=== PATIENT | female | born 1995 | race African-American/Black ===

== ENCOUNTER 2016-07-04 13:16 | Emergency (ER) | payer MEDICAID ==
[~2016-07-04] VITALS: Ht 157.5 cm; Wt 99.8 kg
[2016-07-04 13:30] VITALS: BP 200/134
[2016-07-04] MEDS ORDERED: SODIUM CHLORIDE 0.9% 1,000 ML IVB ONE (17:38)
[2016-07-04 17:45] LABS: Basophils # (auto) 0.1 uL; Basophils % (auto) 0.5 % (0.0-2.0); DEFINITIVE VIEW TRANSMISSION; Eosinophils # (auto) 0 uL; Hematocrit 50.3 % (36.0-46.0); Hemoglobin 16.1 g/dL (12.2-16.2); Mean Corpuscular Hemoglobin 26.4 pg (28.0-32.0); Mean Corpuscular Volume 82.3 fL (80.0-100.0); Mean Platelet Volume 8.6 fL (7.4-10.4); Monocytes # (auto) 0.7 uL; Monocytes % (auto) 5.2 % (0.0-12.0); Neutrophils # (auto) 8.8 uL; Neutrophils % (auto) 70.3 % (37.0-80.0); Platelet Count (auto) 267 10^3/uL (140-450); Red Cell Distribution Width 15.3 % (11.6-16.0); White Blood Cell 12.6 10^3/uL (4.4-10.8)
[2016-07-04] MEDS ORDERED: ONDANSETRON HCL 4 MG/2 ML VIAL IV ONE (17:45)
[2016-07-04] MEDS ORDERED: LIDOCAINE VISCOUS 2% 15ML UD PO ONE (17:45)
[2016-07-04] MEDS ORDERED: DONNATAL 5ml ORAL Elix (BELLADONNA ALK-PHENOBARB) PO ONE (17:45)
[2016-07-04] MEDS ORDERED: ALUM & MAG HYDROX-SIMETH LIQ(MAALOX) 30 ML PO ONE (17:45)
[2016-07-04 18:03] LABS: Albumin 3.9 g/dL (3.4-5.0); BUN/Creatinine Ratio 5.2; Potassium 3.7 mmol/L (3.5-5.1)
[2016-07-04 18:06] LABS: Bilirubin, Total 0.3 mg/dL (0.2-1.0); Total Protein 8.9 g/dL (6.4-8.2)
== END 2016-07-04 19:51 | disposition left against medical advice (07) ==
LOC: EDBD 13:16 → ER 13:26
DX: R10.13 Epigastric pain (principal); R11.2 Nausea with vomiting, unspecified; R19.7 Diarrhea, unspecified; R55 Syncope and collapse; Z88.0 Allergy status to penicillin; Z88.6 Allergy status to analgesic agent
CPT/HCPCS: 36415; 80053; 83690; 84484; 84702; 85025; 85049

== ENCOUNTER 2016-08-12 15:21 | Emergency (ER) | payer MEDICAID ==
[~2016-08-12] VITALS: Ht 175.3 cm; Wt 108.9 kg
[2016-08-12 16:20] LABS: Basophils # (auto) 0 uL; Basophils % (auto) 0.1 % (0.0-2.0); Eosinophils # (auto) 0 uL; Hematocrit 43.6 % (36.0-46.0); Hemoglobin 14.3 g/dL (12.2-16.2); Lymphocytes # (auto) 1.5 uL; Lymphocytes % (auto) 12.6 % (10.0-50.0); Mean Corpuscular Hemoglobin 27.2 pg (28.0-32.0); Mean Corpuscular Hgb Conc. 32.7 g/dL (32.0-36.0); Mean Corpuscular Volume 83.1 fL (80.0-100.0); Mean Platelet Volume 8.8 fL (7.4-10.4); Monocytes # (auto) 0.2 uL; Monocytes % (auto) 1.9 % (0.0-12.0); Neutrophils # (auto) 10.5 uL; Neutrophils % (auto) 85.4 % (37.0-80.0); Platelet Count (auto) 284 10^3/uL (140-450); Red Cell Distribution Width 16.3 % (11.6-16.0); White Blood Cell 12.3 10^3/uL (4.4-10.8)
[2016-08-12 16:40] LABS: Urine Bilirubin Negative (Negative); Urine Blood Negative /uL (Negative); Urine Color Yellow (Yellow); Urine Glucose Normal (Normal); Urine Ketone Negative (Negative); Urine Nitrite Negative (Negative); Urine RBC 1 /hpf (0 - 4); Urine Squamous Epithelial Cell FEW /hpf (<5); Urine Urobilinogen Normal (Negative); Urine pH 8.5 (5.0-8.0)
[2016-08-12 16:55] LABS: Albumin 3.8 g/dL (3.4-5.0); Alkaline Phosphatase 89 U/L (45-117); Anion Gap 9 (5-15); Aspartate Aminotransferase 20 U/L (15-37); BUN/Creatinine Ratio 7.3; Bilirubin, Total 0.2 mg/dL (0.2-1.0); Blood Urea Nitrogen 8 mg/dL (7-18); Calcium 9.1 mg/dL (8.5-10.1); Carbon Dioxide 24 mmol/L (21-32); Chloride 106 mmol/L (98-107); GFR African American 81 mL/min; GFR Non-African American 67 mL/min; Glucose 121 mg/dL (74-106); Potassium 4.2 mmol/L (3.5-5.1); Sodium 139 mmol/L (136-145); Total Protein 8.5 g/dL (6.4-8.2)
[2016-08-12 19:50] VITALS: BP 146/85
[2016-08-12] MEDS ORDERED: PROMETHAZINE HCL 25 MG/ML 1ML IM ONE (20:00)
[2016-08-12] MEDS ORDERED: HYDROcodone-ACET 5/325MG TAB PO ONE (20:00)
== END 2016-08-12 20:59 | disposition home or self-care (01) ==
LOC: EDBD 15:21 → ER 15:29
DX: R55 Syncope and collapse (principal); R42 Dizziness and giddiness; R10.9 Unspecified abdominal pain; R51 Headache; F12.10 Cannabis abuse, uncomplicated; E66.9 Obesity, unspecified; Z68.35 Body mass index [BMI] 35.0-35.9, adult
CPT/HCPCS: 36415; 70450; 71010; 74176; 80053; 81001; 83735; 84484; 85025; 93005; 94761; 96372; 99285; G0434; J2550

== ENCOUNTER 2016-09-15 12:58 | Emergency (ER) | payer MEDICAID ==
[~2016-09-15] VITALS: Ht 157.5 cm; Wt 68.0 kg
[2016-09-15] MEDS: HYDROmorphone HCL 2 MG/ML VL IV ONE (13:42)
[2016-09-15] MEDS: SODIUM CHLORIDE 0.9% 1,000 ML IVB ONE (13:48)
[2016-09-15] MEDS: PANTOPRAZOLE SODIUM 40 MG/10 ML VIAL IV ONE (13:48)
[2016-09-15] MEDS: PROCHLORPERAZINE EDISYLATE 5 MG/ML 2ML VIAL IV ONE (13:48)
[2016-09-15 14:14] LABS: Bilirubin, Total 0.5 mg/dL (0.2-1.0); Calcium 9.7 mg/dL (8.5-10.1); Potassium 3.3 mmol/L (3.5-5.1); Total Protein 8.9 g/dL (6.4-8.2)
[2016-09-15 14:18] LABS: Basophils # (auto) 0 uL; Basophils % (auto) 0.4 % (0.0-2.0); DEFINITIVE VIEW TRANSMISSION; Eosinophils # (auto) 0 uL; Hematocrit 48.8 % (36.0-46.0); Lymphocytes # (auto) 3.3 uL; Mean Corpuscular Hemoglobin 26.6 pg (28.0-32.0); Mean Corpuscular Hgb Conc. 32.7 g/dL (32.0-36.0); Mean Corpuscular Volume 81.4 fL (80.0-100.0); Mean Platelet Volume 9.1 fL (7.4-10.4); Monocytes # (auto) 0.8 uL; Monocytes % (auto) 6.3 % (0.0-12.0); Neutrophils # (auto) 8.1 uL; Neutrophils % (auto) 66.3 % (37.0-80.0); Platelet Count (auto) 286 10^3/uL (140-450); Red Cell Distribution Width 16.6 % (11.6-16.0); White Blood Cell 12.3 10^3/uL (4.4-10.8)
[2016-09-15 15:03] VITALS: BP 110/65
== END 2016-09-15 15:14 | disposition home or self-care (01) ==
LOC: EDBD 12:58 → ER 13:00
DX: K21.9 Gastro-esophageal reflux disease without esophagitis (principal); Z88.0 Allergy status to penicillin; Z88.8 Allergy status to other drugs, medicaments and biological substances
CPT/HCPCS: 36415; 80053; 82150; 83690; 83735; 84702; 85025; 94761; 96361; 96374; 96375; 99285; C9113; J0780; J1170; J7030

== ENCOUNTER 2016-11-30 11:34 | Emergency (ER) | payer MEDICAID ==
[~2016-11-30] VITALS: Ht 157.5 cm; Wt 127.0 kg
[2016-11-30 12:31] LABS: Basophils # (auto) 0 uL; Basophils % (auto) 0.3 % (0.0-2.0); Eosinophils # (auto) 0.1 uL; Eosinophils % (auto) 1.1 % (0.0-7.0); Hematocrit 40.9 % (36.0-46.0); Hemoglobin 13.5 g/dL (12.2-16.2); Lymphocytes # (auto) 2.4 uL; Lymphocytes % (auto) 23.2 % (10.0-50.0); Mean Corpuscular Hgb Conc. 33.1 g/dL (32.0-36.0); Mean Corpuscular Volume 81.6 fL (80.0-100.0); Monocytes # (auto) 0.3 uL; Monocytes % (auto) 2.9 % (0.0-12.0); Neutrophils # (auto) 7.4 uL; Neutrophils % (auto) 72.5 % (37.0-80.0); Platelet Count (auto) 275 10^3/uL (140-450); Red Cell Distribution Width 16.5 % (11.6-16.0); White Blood Cell 10.2 10^3/uL (4.4-10.8)
[2016-11-30 12:49] LABS: Albumin 3.2 g/dL (3.4-5.0); BUN/Creatinine Ratio 6.7; Calcium 8.7 mg/dL (8.5-10.1); Potassium 3.7 mmol/L (3.5-5.1)
[2016-11-30 12:51] LABS: Bilirubin, Total 0.3 mg/dL (0.2-1.0)
[2016-11-30] MEDS ORDERED: SODIUM CHLORIDE 0.9% 1,000 ML IVB ONE (13:59)
[2016-11-30] MEDS ORDERED: PANTOPRAZOLE SODIUM 40 MG/10 ML VIAL IV STA (13:59)
[2016-11-30] MEDS ORDERED: PROCHLORPERAZINE EDISYLATE 5 MG/ML 2ML VIAL IV ONE (14:00)
[2016-11-30] MEDS ORDERED: HYDROmorphone HCL 2 MG/ML VL IV ONE (14:00)
[2016-11-30 15:10] VITALS: BP 154/112
[2016-11-30 16:10] LABS: Urine Bilirubin Negative (Negative); Urine Blood Negative /uL (Negative); Urine Color Yellow (Yellow); Urine Glucose Normal (Normal); Urine Ketone Negative (Negative); Urine Nitrite Negative (Negative); Urine RBC 7 /hpf (0 - 4); Urine Squamous Epithelial Cell FEW /hpf (<5); Urine Urobilinogen Normal (Negative)
== END 2016-11-30 16:49 | disposition home or self-care (01) ==
LOC: EDBD 11:34 → EDUNIT# 11:34 → ER 11:34
DX: K29.70 Gastritis, unspecified, without bleeding (principal); F12.90 Cannabis use, unspecified, uncomplicated; I10 Essential (primary) hypertension; R11.2 Nausea with vomiting, unspecified; Z88.0 Allergy status to penicillin; Z88.6 Allergy status to analgesic agent
CPT/HCPCS: 36415; 80053; 81001; 82150; 83690; 84702; 85025; 94761; 96361; 96374; 96375; 99284; C9113; J0780; J1170; J7030

== ENCOUNTER 2016-12-03 07:26 | Emergency (ER) | payer MEDICAID ==
[~2016-12-03] VITALS: Ht 167.6 cm; Wt 122.5 kg
[2016-12-03 08:47] LABS: Basophils # (auto) 0 uL; Basophils % (auto) 0.4 % (0.0-2.0); DEFINITIVE Y; Eosinophils # (auto) 0 uL; Eosinophils % (auto) 0.1 % (0.0-7.0); Hematocrit 47.8 % (36.0-46.0); Hemoglobin 15.6 g/dL (12.2-16.2); Lymphocytes # (auto) 2.2 uL; Lymphocytes % (auto) 19.1 % (10.0-50.0); Mean Corpuscular Hemoglobin 26.6 pg (28.0-32.0); Mean Corpuscular Hgb Conc. 32.6 g/dL (32.0-36.0); Mean Corpuscular Volume 81.7 fL (80.0-100.0); Mean Platelet Volume 8.8 fL (7.4-10.4); Monocytes % (auto) 8.4 % (0.0-12.0); Neutrophils # (auto) 8.2 uL; Platelet Count (auto) 283 10^3/uL (140-450); Red Cell Distribution Width 16.6 % (11.6-16.0); White Blood Cell 11.4 10^3/uL (4.4-10.8)
[2016-12-03 09:06] LABS: Albumin 3.7 g/dL (3.4-5.0); BUN/Creatinine Ratio 4.9; Bilirubin, Total 0.4 mg/dL (0.2-1.0); Calcium 9.2 mg/dL (8.5-10.1); Potassium 3.3 mmol/L (3.5-5.1); Total Protein 8.2 g/dL (6.4-8.2)
[2016-12-03 10:01] LABS: Amylase 68 U/L (25-115)
[2016-12-03 10:19] LABS: Urine RBC None Seen /hpf (0 - 4)
[2016-12-03] MEDS ORDERED: SODIUM CHLORIDE 0.9% 1,000 ML IVB ONE (10:27)
[2016-12-03] MEDS ORDERED: NALBUPHINE HCL 10 MG/1ml INJECTION IV ONE (10:30)
[2016-12-03] MEDS ORDERED: PROMETHAZINE HCL 25 MG/ML 1ML IV PRN (10:30)
[2016-12-03 10:33] LABS: Urine Bilirubin Negative (Negative); Urine Blood Negative /uL (Negative); Urine Color Yellow (Yellow); Urine Glucose Normal (Normal); Urine Ketone Negative (Negative); Urine Nitrite Negative (Negative); Urine Squamous Epithelial Cell FEW /hpf (<5); Urine Urobilinogen Normal (Negative); Urine pH 7.5 (5.0-8.0)
[2016-12-03 11:59] VITALS: BP 152/88
[2016-12-03] MEDS ORDERED: POTASSIUM CHL 10% (20 MEQ/15ML) ORAL SOLN PO ONE (13:15)
== END 2016-12-03 13:54 | disposition home or self-care (01) ==
LOC: EDBD 07:26 → ER 07:28
DX: R10.9 Unspecified abdominal pain (principal); I10 Essential (primary) hypertension; F12.10 Cannabis abuse, uncomplicated; E87.6 Hypokalemia; E66.01 Morbid (severe) obesity due to excess calories; Z68.41 Body mass index [BMI] 40.0-44.9, adult; Z88.6 Allergy status to analgesic agent; Z88.0 Allergy status to penicillin; Z88.8 Allergy status to other drugs, medicaments and biological substances
CPT/HCPCS: 36415; 74176; 80053; 81001; 81025; 82150; 83690; 83735; 85025; 96361; 96374; 96375; 99285; J2300; J2550; J7030

== ENCOUNTER 2017-04-02 23:58 | Emergency (ER) | payer MEDICAID ==
[2017-04-03] MEDS ORDERED: SODIUM CHLORIDE 0.9% 1,000 ML IVB ONE (06:51)
[2017-04-03] MEDS ORDERED: PANTOPRAZOLE 40 MG/10 ML VIAL IV ONE (07:00)
[2017-04-03] MEDS ORDERED: ONDANSETRON HCL 4 MG/2 ML VIAL IV ONE (07:00)
[2017-04-03 07:07] VITALS: BP 148/106
[2017-04-03] MEDS ORDERED: KETOROLAC TROMETH 30 MG/ML 1ML VIAL IV ONE (07:45)
[2017-04-03] MEDS ORDERED: diphenhdrAMINE HCL 50 MG/1 ML VL IV ONE (07:45)
[2017-04-03 07:46] LABS: Basophils # (auto) 0 uL; Basophils % (auto) 0.3 % (0.0-2.0); Eosinophils # (auto) 0 uL; Hematocrit 44.4 % (36.0-46.0); Hemoglobin 14.8 g/dL (12.2-16.2); Lymphocytes # (auto) 2.1 uL; Lymphocytes % (auto) 16.6 % (10.0-50.0); Mean Corpuscular Hemoglobin 27.3 pg (28.0-32.0); Mean Corpuscular Hgb Conc. 33.2 g/dL (32.0-36.0); Mean Corpuscular Volume 82.3 fL (80.0-100.0); Mean Platelet Volume 8.2 fL (6.9-10.8); Monocytes # (auto) 0.3 uL; Monocytes % (auto) 2.6 % (0.0-12.0); Neutrophils # (auto) 10.3 uL; Neutrophils % (auto) 80.5 % (37.0-80.0); Platelet Count (auto) 239 10^3/uL (140-450); Red Cell Distribution Width 16.3 % (11.8-14.3); White Blood Cell 12.8 10^3/uL (4.4-10.8)
[2017-04-03 08:05] LABS: Albumin 3.9 g/dL (3.4-5.0); BUN/Creatinine Ratio 8.1; Bilirubin, Total 0.5 mg/dL (0.2-1.0); Calcium 9.3 mg/dL (8.5-10.1); Potassium 3.6 mmol/L (3.5-5.1)
== END 2017-04-03 09:02 | disposition home or self-care (01) ==
LOC: EDBD 23:58 → ER 04-03 00:04
DX: K52.9 Noninfective gastroenteritis and colitis, unspecified (principal); Z88.0 Allergy status to penicillin; Z88.6 Allergy status to analgesic agent; I10 Essential (primary) hypertension
CPT/HCPCS: 36415; 74176; 80053; 81002; 82150; 83690; 84702; 85025; 96361; 96374; 96375; 99285; J1200; J1885; J2405; J7030

== ENCOUNTER 2017-05-15 13:57 | Emergency (ER) | payer SELFPAY ==
[~2017-05-15] VITALS: Ht 157.5 cm; Wt 99.8 kg
[2017-05-15 14:06] VITALS: BP 147/97
[2017-05-15 14:51] LABS: Basophils # (auto) 0 uL; Basophils % (auto) 0.4 % (0.0-2.0); Eosinophils # (auto) 0.2 uL; Eosinophils % (auto) 1.7 % (0.0-7.0); Hematocrit 43.5 % (36.0-46.0); Hemoglobin 14.5 g/dL (12.2-16.2); Lymphocytes # (auto) 3.2 uL; Lymphocytes % (auto) 30.5 % (10.0-50.0); Mean Corpuscular Hemoglobin 27.5 pg (28.0-32.0); Mean Corpuscular Hgb Conc. 33.3 g/dL (32.0-36.0); Mean Corpuscular Volume 82.4 fL (80.0-100.0); Mean Platelet Volume 8.6 fL (6.9-10.8); Monocytes # (auto) 0.6 uL; Monocytes % (auto) 5.8 % (0.0-12.0); Neutrophils # (auto) 6.5 uL; Neutrophils % (auto) 61.6 % (37.0-80.0); Nucleated Red Blood Cells % 0.1 %; Platelet Count (auto) 221 10^3/uL (140-450); Red Cell Distribution Width 16.2 % (11.8-14.3); White Blood Cell 10.5 10^3/uL (4.4-10.8)
[2017-05-15 15:06] LABS: Albumin 3.5 g/dL (3.4-5.0); BUN/Creatinine Ratio 8.1; Bilirubin, Total 0.6 mg/dL (0.2-1.0); Potassium 4.9 mmol/L (3.5-5.1); Total Protein 8.3 g/dL (6.4-8.2)
== END 2017-05-15 15:10 | disposition left against medical advice (07) ==
LOC: ER 13:57 → EDBD 13:57 → ER 15:10
DX: R10.9 Unspecified abdominal pain (principal); R11.2 Nausea with vomiting, unspecified; Z53.21 Procedure and treatment not carried out due to patient leaving prior to being seen by health care provider
CPT/HCPCS: 36415; 80053; 85025

== ENCOUNTER 2017-05-17 03:30 | Emergency (ER) | payer SELFPAY ==
[~2017-05-17] VITALS: Ht 157.5 cm; Wt 119.7 kg
[2017-05-17 04:15] LABS: Basophils # (auto) 0 uL; Basophils % (auto) 0.4 % (0.0-2.0); Eosinophils # (auto) 0 uL; Hematocrit 47.4 % (36.0-46.0); Hemoglobin 15.9 g/dL (12.2-16.2); Lymphocytes # (auto) 3.7 uL; Lymphocytes % (auto) 28.4 % (10.0-50.0); Mean Corpuscular Hemoglobin 27.3 pg (28.0-32.0); Mean Corpuscular Hgb Conc. 33.6 g/dL (32.0-36.0); Mean Corpuscular Volume 81.2 fL (80.0-100.0); Mean Platelet Volume 8.4 fL (6.9-10.8); Monocytes # (auto) 0.9 uL; Neutrophils # (auto) 8.3 uL; Neutrophils % (auto) 64.2 % (37.0-80.0); Nucleated Red Blood Cells % 0.1 %; Platelet Count (auto) 248 10^3/uL (140-450); White Blood Cell 12.9 10^3/uL (4.4-10.8)
[2017-05-17 04:31] LABS: Albumin 3.9 g/dL (3.4-5.0); BUN/Creatinine Ratio 4.5; Calcium 9.7 mg/dL (8.5-10.1); Potassium 3.4 mmol/L (3.5-5.1)
[2017-05-17 04:34] LABS: Bilirubin, Total 0.4 mg/dL (0.2-1.0); Total Protein 9.2 g/dL (6.4-8.2)
[2017-05-17 05:01] LABS: Urine Bilirubin Negative (Negative); Urine Blood Negative /uL (Negative); Urine Color Yellow (Yellow); Urine Glucose Normal (Normal); Urine Ketone Negative (Negative); Urine Nitrite Negative (Negative); Urine RBC 1 /hpf (0 - 4); Urine Squamous Epithelial Cell FEW /hpf (<5); Urine Urobilinogen Normal (Negative)
[2017-05-17] MEDS ORDERED: PANTOPRAZOLE 40 MG/10 ML VIAL IV STA (07:45)
[2017-05-17] MEDS ORDERED: HYDROmorphone HCL 2 MG/ML VL IV ONE (07:45)
[2017-05-17] MEDS ORDERED: PROMETHAZINE HCL 25 MG/ML 1ML IV PRN (07:45)
[2017-05-17] MEDS ORDERED: SODIUM CHLORIDE 0.9% 1,000 ML IVB ONE (07:45)
[2017-05-17] MEDS ORDERED: MORPHINE SULF INJ 2 MG/ML SYRINGE 1ML IV ONE (08:00)
[2017-05-17 08:27] LABS: Amylase 113 U/L (25-115)
[2017-05-17 08:45] VITALS: BP 111/59
== END 2017-05-17 09:00 | disposition home or self-care (01) ==
LOC: EDBD 03:30 → ER 03:32
DX: R10.9 Unspecified abdominal pain (principal); F12.10 Cannabis abuse, uncomplicated; I10 Essential (primary) hypertension; N83.209 Unspecified ovarian cyst, unspecified side; Z88.0 Allergy status to penicillin; Z88.8 Allergy status to other drugs, medicaments and biological substances
CPT/HCPCS: 36415; 74176; 80053; 81001; 81025; 82150; 83690; 85025; 94761; 96361; 96374; 96375; 99285; C9113; J2270; J7030

== ENCOUNTER 2017-08-04 16:17 | Emergency (ER) | payer MEDICAID ==
[~2017-08-04] VITALS: Ht 157.5 cm; Wt 112.5 kg
[2017-08-04] MEDS ORDERED: NALOXONE HCL 0.4 MG/ML VIAL IV ONE (16:30)
[2017-08-04] MEDS ORDERED: NALOXONE HCL 0.4 MG/ML VIAL ONE (16:32)
[2017-08-04 16:39] LABS: Basophils # (auto) 0 uL; Basophils % (auto) 0.4 % (0.0-2.0); Eosinophils # (auto) 0 uL; Hematocrit 46.6 % (36.0-46.0); Hemoglobin 15.3 g/dL (12.2-16.2); Lymphocytes # (auto) 1.6 uL; Lymphocytes % (auto) 13.5 % (10.0-50.0); Mean Corpuscular Hemoglobin 27.3 pg (28.0-32.0); Mean Corpuscular Hgb Conc. 32.9 g/dL (32.0-36.0); Monocytes # (auto) 0.3 uL; Monocytes % (auto) 2.7 % (0.0-12.0); Neutrophils % (auto) 83.4 % (37.0-80.0); Nucleated Red Blood Cells % 0.1 %; Platelet Count (auto) 255 10^3/uL (140-450); Red Blood Cells 5.62 10^6/uL (4.0-5.20); Red Cell Distribution Width 16.1 % (11.8-14.3)
[2017-08-04 16:40] VITALS: BP 143/87
[2017-08-04] MEDS ORDERED: SODIUM CHLORIDE 0.9% 1,000 ML IV ONE ×2 (16:45)
[2017-08-04] MEDS ORDERED: PROMETHAZINE HCL 25 MG/ML 1ML ONE (16:52)
[2017-08-04 16:57] LABS: Acetaminophen < 2.0 ug/mL (10-30); Salicylate 2.2 mg/dL (2.8-20.0)
[2017-08-04 16:58] LABS: Albumin 3.7 g/dL (3.4-5.0); BUN/Creatinine Ratio 7.6; Calcium 9.5 mg/dL (8.5-10.1)
[2017-08-04] MEDS ORDERED: PROMETHAZINE HCL 25 MG/ML 1ML IV ONE (17:00)
[2017-08-04 17:01] LABS: Bilirubin, Total 0.4 mg/dL (0.2-1.0); Total Protein 8.8 g/dL (6.4-8.2)
[2017-08-04] MEDS ORDERED: IOHEXOL 300 MG/ML 100ML BOTTLE IJ ONE (17:11)
== END 2017-08-04 18:30 | disposition left against medical advice (07) ==
LOC: ER 16:20
DX: E86.0 Dehydration (principal); E66.01 Morbid (severe) obesity due to excess calories; I10 Essential (primary) hypertension; Z68.42 Body mass index [BMI] 45.0-49.9, adult; Z88.0 Allergy status to penicillin; Z88.6 Allergy status to analgesic agent
CPT/HCPCS: 36415; 71045; 74177; 80053; 80329; 85025; 96361; 96374; 96375; 99285; J2310; J2550; Q9967

== ENCOUNTER 2017-08-06 03:21 | Emergency (ER) | payer MEDICAID ==
[~2017-08-06] VITALS: Ht 157.5 cm; Wt 149.7 kg
[2017-08-06 03:27] VITALS: BP 114/88
[2017-08-06 03:44] LABS: Basophils # (auto) 0 uL; Basophils % (auto) 0.3 % (0.0-2.0); Eosinophils # (auto) 0 uL; Eosinophils % (auto) 0.3 % (0.0-7.0); Lymphocytes # (auto) 3.3 uL; Lymphocytes % (auto) 26.6 % (10.0-50.0); Mean Corpuscular Hemoglobin 27.4 pg (28.0-32.0); Mean Corpuscular Hgb Conc. 34.1 g/dL (32.0-36.0); Mean Corpuscular Volume 80.3 fL (80.0-100.0); Monocytes # (auto) 0.7 uL; Monocytes % (auto) 5.3 % (0.0-12.0); Neutrophils # (auto) 8.4 uL; Neutrophils % (auto) 67.5 % (37.0-80.0); Nucleated Red Blood Cells % 0.1 %; Platelet Count (auto) 267 10^3/uL (140-450); Red Blood Cells 5.48 10^6/uL (4.0-5.20); Red Cell Distribution Width 16.3 % (11.8-14.3); White Blood Cell 12.5 10^3/uL (4.4-10.8)
[2017-08-06 04:29] LABS: Albumin 3.5 g/dL (3.4-5.0); BUN/Creatinine Ratio 5.2; Calcium 9.4 mg/dL (8.5-10.1); Potassium 3.4 mmol/L (3.5-5.1)
[2017-08-06 04:32] LABS: Bilirubin, Total 0.5 mg/dL (0.2-1.0); Total Protein 8.2 g/dL (6.4-8.2)
== END 2017-08-06 06:28 | disposition left against medical advice (07) ==
LOC: EDBD 03:21 → ER 03:23
DX: R10.9 Unspecified abdominal pain (principal); Z53.21 Procedure and treatment not carried out due to patient leaving prior to being seen by health care provider
CPT/HCPCS: 36415; 80053; 82150; 83690; 84702; 85025

== ENCOUNTER 2017-11-13 10:01 | Emergency (ER) | payer MEDICAID ==
[~2017-11-13] VITALS: Ht 157.5 cm; Wt 104.3 kg
[2017-11-13 10:01] VITALS: BP 155/121
[2017-11-13] MEDS ORDERED: SODIUM CHLORIDE 0.9% 1,000 ML IV ONE ×2 (10:20)
[2017-11-13] MEDS ORDERED: KETOROLAC TROMETH 30 MG/ML 1ML VIAL IV ONE (10:30)
[2017-11-13] MEDS ORDERED: ONDANSETRON HCL 4 MG/2 ML VIAL IV ONE (10:30)
[2017-11-13 10:36] LABS: Basophils # (auto) 0.1 uL; Basophils % (auto) 0.5 % (0.0-2.0); Eosinophils # (auto) 0.4 uL; Eosinophils % (auto) 3.7 % (0.0-7.0); Hematocrit 43.4 % (36.0-46.0); Hemoglobin 14.4 g/dL (12.2-16.2); Lymphocytes # (auto) 3.2 uL; Lymphocytes % (auto) 33.1 % (10.0-50.0); Mean Corpuscular Hemoglobin 27.5 pg (28.0-32.0); Mean Corpuscular Hgb Conc. 33.2 g/dL (32.0-36.0); Mean Corpuscular Volume 82.9 fL (80.0-100.0); Monocytes # (auto) 0.6 uL; Monocytes % (auto) 6.5 % (0.0-12.0); Neutrophils # (auto) 5.5 uL; Neutrophils % (auto) 56.2 % (37.0-80.0); Nucleated Red Blood Cells % 0.1 %; Platelet Count (auto) 253 10^3/uL (140-450); Red Blood Cells 5.23 10^6/uL (4.0-5.20); Red Cell Distribution Width 16.1 % (11.8-14.3); White Blood Cell 9.7 10^3/uL (4.4-10.8)
[2017-11-13 10:56] LABS: Urine Bacteria NONE SEEN /hpf (None Seen); Urine Blood Negative /uL (Negative); Urine Mucus FEW (None Seen); Urine Specific Gravity 1.016 (1.001-1.035); Urine WBC 1 /hpf (0 - 5)
[2017-11-13 11:14] LABS: Albumin 3.6 g/dL (3.4-5.0); BUN/Creatinine Ratio 7.6; Bilirubin, Total 0.3 mg/dL (0.2-1.0); Potassium 3.5 mmol/L (3.5-5.1)
[2017-11-13] MEDS ORDERED: PROMETHAZINE HCL 25 MG/ML 1ML IV ONE ×3 (11:15→13:15)
[2017-11-13] MEDS ORDERED: ACETAMINOPHEN 500 MG TAB PO ONE (11:15)
[2017-11-13] MEDS ORDERED: MORPHINE SULFATE 8mg/ml INJ SDV IV ONE (13:15)
== END 2017-11-13 14:28 | disposition home or self-care (01) ==
LOC: ER 10:01 → EDBD 10:01 → ER 14:28
DX: R10.13 Epigastric pain (principal); F12.10 Cannabis abuse, uncomplicated; Z88.0 Allergy status to penicillin; Z88.8 Allergy status to other drugs, medicaments and biological substances
CPT/HCPCS: 36415; 74176; 80053; 81001; 84702; 85025; 96361; 96374; 96375; 96376; 99285; J1885; J2270; J2405; J2550

== ENCOUNTER 2017-11-14 16:44 | Emergency (ER) | payer MEDICAID ==
[~2017-11-14] VITALS: Ht 157.5 cm; Wt 136.1 kg
[2017-11-14 16:45] VITALS: BP 111/60
[2017-11-14] MEDS ORDERED: DONNATAL 5ml ORAL Elix (BELLADONNA ALK-PHENOBARB) PO ONE (17:15)
[2017-11-14] MEDS ORDERED: ALUM & MAG HYDROX-SIMETH LIQ(MAALOX) 30 ML PO ONE (17:15)
[2017-11-14] MEDS ORDERED: LIDOCAINE VISCOUS 2% 15ML UD PO ONE (17:15)
== END 2017-11-14 22:00 | disposition left against medical advice (07) ==
LOC: ER 16:44 → EDBD 16:44 → ER 22:00
DX: R10.13 Epigastric pain (principal); Z53.21 Procedure and treatment not carried out due to patient leaving prior to being seen by health care provider

== ENCOUNTER 2018-03-15 20:22 | Emergency (ER) | payer MEDICAID ==
[~2018-03-15] VITALS: Ht 157.5 cm; Wt 95.3 kg
[2018-03-15] MEDS ORDERED: SODIUM CHLORIDE 0.9% 500 ML IVB ONE (20:57)
[2018-03-15] MEDS ORDERED: PANTOPRAZOLE 40 MG/10 ML VIAL IV STA (20:57)
[2018-03-15] MEDS ORDERED: HYDROmorphone HCL 2 MG/ML VL IV ONE (21:00)
[2018-03-15] MEDS ORDERED: ONDANSETRON HCL 4 MG/2 ML VIAL IV ONE (21:00)
[2018-03-15 21:09] LABS: Basophils # (auto) 0.1 uL; Basophils % (auto) 0.5 % (0.0-2.0); Eosinophils # (auto) 0.1 uL; Eosinophils % (auto) 0.4 % (0.0-7.0); Hematocrit 41.6 % (36.0-46.0); Hemoglobin 13.9 g/dL (12.2-16.2); Lymphocytes % (auto) 24.5 % (10.0-50.0); Mean Corpuscular Hemoglobin 27.5 pg (28.0-32.0); Mean Corpuscular Hgb Conc. 33.4 g/dL (32.0-36.0); Mean Corpuscular Volume 82.4 fL (80.0-100.0); Monocytes # (auto) 0.6 uL; Monocytes % (auto) 4.7 % (0.0-12.0); Neutrophils # (auto) 8.7 uL; Neutrophils % (auto) 69.9 % (37.0-80.0); Nucleated Red Blood Cells % 0.1 %; Platelet Count (auto) 225 10^3/uL (140-450); Red Blood Cells 5.05 10^6/uL (4.0-5.20); Red Cell Distribution Width 15.4 % (11.8-14.3); White Blood Cell 12.4 10^3/uL (4.4-10.8)
[2018-03-15 21:28] LABS: Albumin 3.7 g/dL (3.4-5.0); BUN/Creatinine Ratio 6.2; Bilirubin, Total 0.6 mg/dL (0.2-1.0); Calcium 9.6 mg/dL (8.5-10.1); Potassium 3.6 mmol/L (3.5-5.1); Total Protein 8.5 g/dL (6.4-8.2)
[2018-03-15 21:52] VITALS: BP 136/87
[2018-03-15] MEDS ORDERED: IOHEXOL 300 MG/ML 100ML BOTTLE IJ ONE (22:30)
[2018-03-15] MEDS ORDERED: SODIUM CHLORIDE 0.9% 1,000 ML IV ONE (22:30)
[2018-03-16 00:35] LABS: Urine Bacteria NONE SEEN /hpf (None Seen); Urine Blood Negative /uL (Negative); Urine WBC 2 /hpf (0 - 5)
[2018-03-16 00:52] LABS: Alcohol, Urine < 3.0 mg/dL (0-5); Amphetamine Screen, Urine NEGATIVE (NEGATIVE); Barbiturate Scree,Urine NEGATIVE (NEGATIVE); Benzodiazephine Screen, Urine NEGATIVE (NEGATIVE); Cannabinoid Screen, Urine POSITIVE (NEGATIVE); Cocaine Screen, Urine NEGATIVE (NEGATIVE); Opiate Scree,Urine NEGATIVE (NEGATIVE); Phencyclidine Screen, Urine NEGATIVE (NEGATIVE)
[2018-03-16] MEDS ORDERED: MORPHINE SULFATE 4 MG/ML SYR/VIAL IM ONE (01:00)
== END 2018-03-16 01:00 | disposition home or self-care (01) ==
LOC: EDBD 20:22 → ER 20:43
DX: R10.13 Epigastric pain (principal); G43.A1 Cyclical vomiting, in migraine, intractable; F12.90 Cannabis use, unspecified, uncomplicated; Z88.0 Allergy status to penicillin; Z88.6 Allergy status to analgesic agent
CPT/HCPCS: 36415; 74177; 76705; 80053; 80307; 80320; 81001; 81025; 82150; 83690; 85025; 94761; 96361; 96372; 96374; 96375; 99285; C9113; J1170; J2270; J2405; Q9967

== ENCOUNTER 2018-03-19 07:31 | Emergency (ER) | payer MEDICAID ==
[2018-03-19] MEDS ORDERED: SODIUM CHLORIDE 0.9% 1,000 ML IVB ONE (07:37)
[2018-03-19] MEDS ORDERED: PANTOPRAZOLE 40 MG/10 ML VIAL IV STA (07:37)
[2018-03-19] MEDS ORDERED: PROCHLORPERAZINE EDISYLATE 5 MG/ML 2ML VIAL IV ONE (07:45)
[2018-03-19] MEDS ORDERED: HYDROmorphone HCL 2 MG/ML VL IV ONE (07:45)
[2018-03-19 08:32] LABS: Basophils # (auto) 0 uL; Basophils % (auto) 0.4 % (0.0-2.0); Eosinophils # (auto) 0 uL; Eosinophils % (auto) 0.1 % (0.0-7.0); Hematocrit 45.7 % (36.0-46.0); Hemoglobin 15.2 g/dL (12.2-16.2); Lymphocytes # (auto) 2.2 uL; Lymphocytes % (auto) 27.2 % (10.0-50.0); Mean Corpuscular Hemoglobin 27.9 pg (28.0-32.0); Mean Corpuscular Hgb Conc. 33.3 g/dL (32.0-36.0); Monocytes # (auto) 0.4 uL; Monocytes % (auto) 5.3 % (0.0-12.0); Neutrophils # (auto) 5.4 uL; Nucleated Red Blood Cells % 0.2 %; Platelet Count (auto) 213 10^3/uL (140-450); Red Blood Cells 5.45 10^6/uL (4.0-5.20); Red Cell Distribution Width 15.7 % (11.8-14.3)
[2018-03-19 08:54] LABS: Albumin 3.6 g/dL (3.4-5.0); BUN/Creatinine Ratio 2.6; Bilirubin, Total 0.5 mg/dL (0.2-1.0); Calcium 8.8 mg/dL (8.5-10.1)
[2018-03-19 09:24] VITALS: BP 150/62
== END 2018-03-19 09:32 | disposition home or self-care (01) ==
LOC: EDBD 07:31 → ER 07:31
DX: R10.13 Epigastric pain (principal); F12.10 Cannabis abuse, uncomplicated; Z88.0 Allergy status to penicillin
CPT/HCPCS: 36415; 80053; 82150; 83690; 85025; 94761; 96374; 96375; 99284; C9113; J0780; J1170; J7030

== ENCOUNTER 2018-04-20 13:53 | Emergency (ER) | payer MEDICAID ==
[~2018-04-20] VITALS: Ht 157.5 cm; Wt 136.1 kg
[2018-04-20 14:00] VITALS: BP 142/116
== END 2018-04-20 17:47 | disposition home or self-care (01) ==
LOC: EDBD 13:53 → ER 13:53
DX: R10.84 Generalized abdominal pain (principal); R11.2 Nausea with vomiting, unspecified; Z88.6 Allergy status to analgesic agent; Z88.0 Allergy status to penicillin; Z88.8 Allergy status to other drugs, medicaments and biological substances